=== PATIENT | female | born 1935 | race Caucasian/White ===

== ENCOUNTER 2016-10-28 12:07 | Inpatient (IN) | payer OTHER ==
[~2016-10-28] VITALS: Ht 142.2 cm; Wt 61.5 kg
[~2016-10-28 12:07] MED LIST: ALLERGY10 M2 PO; ARICEPT10 MG PO; ASCORBIC ACID500 M3 PO; ASPIR 8181 MG PO; ASPIRIN81 M2 PO; BACTRIM,SEPT1 TABLET PO; BACTROBAN OINTM22 GM TP; BISACODYL10 MG RC; CEFTIN500 MG PO; CLARITIN10 M3 PO; CLOBETASOL PROP15 GM TP; DAILY VITE WIT1 EACH PO; DILANTIN100 MG PO; DOVONEX TP; DULCOLAX10 MG PR; EFFEXOR75 MG PO; GUAIFENESIN AC473 ML PO; LEVOTHROID,S0.075 MG PO; LEVOTHYROXINE75 MCG PO; LIDEX 0.05% SOL60 ML TP; LISINOPRIL5 MG PO; LORAZEPAM1 MG PO; LUMIGAN 0.50 DROP/22 BOTH EYES; MIRALAX17 GM PO; OMEPRAZOLE20 MG PO; OYSTER SHELL 51 EACH PO; OYSTER SHELL C1 EA14 PO; OYSTER SHELL C1 EAC7 PO; PHENERGAN25 MG PR; PLAVIX75 MG PO; PRILOSEC20 MG PO; PRILOSEC40 MG PO; PROCTOCREAM-HC30 GM PR; PROMETHEGAN25 MG PR; PROVENTIL,2.5 MG/3 M IH; Q-TUSSIN DM SY240 ML PO; REMERON15 M1 PO; REMERON15 M2 PO; SENNA8.6 M1 PO; TEMOVATE 0.05%30 GM TP; TIMOPTIC-XE GEL5 ML BOTH EYES; TYLENOL325 M1 PO; VENLAFAXINE H37.5 M3 PO; VENLAFAXINE HCL75 M1 PO; ZESTRIL,PRINIVIL5 MG PO; ZITHROMAX Z-PA250 MG PO; [UNRECOGNIZED DRUG - OTHER] PO
[2016-10-28 13:28] LABS: EOSINOPHIL (%) 1.5 % (0-5); EOSINOPHIL COUNT 0.1 K/uL (0-0.3); IMMATURE GRANULOCYTE (%) 0.4 % (0.0-0.7); IMMATURE GRANULOCYTE COUNT 0.3 K/uL; LYMPHOCYTE COUNT 1.1 K/uL (1.0-2.8); MCH 33.3 PG (29.0-34.0); MEAN PLAT.VOLUME 9.8 uM^3 (9.5-12.4); MONOCYTE (%) 2.6 % (3-12); MONOCYTE COUNT 0.2 K/uL (0-0.8); NEUTROPHIL (%) 81.5 % (45-76); NEUTROPHIL COUNT 6.5 K/uL (1.8-6.4); PLATELET COUNT 227 K/uL (156-360); RBC DIS.WIDTH-CV 13.2 % (11.8-14.6); RBC DIS.WIDTH-SD 45.3 % (39-53); RED BLOOD COUNT 4.08 M/uL (3.80-5.20)
[2016-10-28 13:29] LABS: INFLUENZA A VIRAL ANTIGEN NEGATIVE; INFLUENZA B VIRAL ANTIGEN NEGATIVE
[2016-10-28 13:39] LABS: CHLORIDE 112 mEq/L (99-109); POTASSIUM 4.5 mEq/L (3.7-5.4); SODIUM 145 mEq/L (136-147)
[2016-10-28 13:41] LABS: GLUCOSE 120 mg/dL (70-99)
[2016-10-28 13:43] LABS: ANION GAP 10 MEQ/L (2-14)
[2016-10-28 13:45] LABS: GFR ESTIMATE (CALCULATED) > 59 mL/min/
[2016-10-28 13:46] LABS: UREA NITROGEN (BUN) 21 mg/dL (9-23)
[2016-10-28] MEDS ORDERED: DONEPEZIL HCL10 MG PO (14:51)
[2016-10-28] MEDS ORDERED: REMERON15 M1 PO (14:52)
[2016-10-28] MEDS ORDERED: VITAMIN C500 M1 PO (14:53)
[2016-10-28] MEDS ORDERED: LUMIGAN 0.50 DROP/22 BOTH EYES (14:54)
[2016-10-28] MEDS ORDERED: CLOBETASOL PROP60 G1 TP (14:56)
[2016-10-28] MEDS ORDERED: CALCIPOTRIENE60 GM TP (14:56)
[2016-10-28] MEDS ORDERED: CALMOSEPTINE O120 GM TP (14:57)
[2016-10-28] MEDS ORDERED: PROAIR HFA8.5 GM IH (14:58)
[2016-10-28] MEDS ORDERED: CORMAX50 M1 TP (15:00)
[2016-10-28] MEDS ORDERED: ACETAMINOPHEN325 M1 PO (15:01)
[2016-10-28] MEDS ORDERED: BISAC-EVAC10 MG PR (15:01)
[2016-10-28] MEDS ORDERED: GUAIFENESIN AC473 ML PO (15:02)
[2016-10-28] MEDS ORDERED: PROMETHAZINE HC25 MG PR (15:03)
[2016-10-28] MEDS ORDERED: Q-TUSSIN DM SY240 ML PO (15:03)
[2016-10-28] MEDS ORDERED: TRAMADOL HCL50 MG PO (15:04)
[2016-10-28] MEDS ORDERED: HYDROCORTISONE30 G2 TP (15:07)
[2016-10-28 17:20] VITALS: BP 180/78
[2016-10-28 20:00] VITALS: BP 142/93
[2016-10-29] VITALS (8 sets, daily range): BP systolic 122–164; BP diastolic 58–89
[2016-10-29 07:20] LABS: EOSINOPHIL (%) 1.3 % (0-5); EOSINOPHIL COUNT 0.1 K/uL (0-0.3); HEMATOCRIT 38.4 % (36.0-46.0); IMMATURE GRANULOCYTE (%) 0.4 % (0.0-0.7); LYMPHOCYTE COUNT 3.6 K/uL (1.0-2.8); MCH 32.3 PG (29.0-34.0); MCHC 32.6 G/DL (30.0-36.0); MCV 99.2 FL (83-99); MEAN PLAT.VOLUME 10.2 uM^3 (9.5-12.4); MONOCYTE (%) 13.9 % (3-12); MONOCYTE COUNT 1.2 K/uL (0-0.8); NEUTROPHIL (%) 43.3 % (45-76); NEUTROPHIL COUNT 3.9 K/uL (1.8-6.4); PLATELET COUNT 218 K/uL (156-360); RBC DIS.WIDTH-CV 13.8 % (11.8-14.6); RBC DIS.WIDTH-SD 49.4 % (39-53); RED BLOOD COUNT 3.87 M/uL (3.80-5.20)
[2016-10-29 07:35] LABS: ANION GAP 8 MEQ/L (2-14); CHLORIDE 108 MEQ/L (99-109); GFR ESTIMATE (CALCULATED) > 59 mL/min/; POTASSIUM 4.3 MEQ/L (3.7-5.4); SAMPLE HEMOLYSIS CHECK 0; SAMPLE ICTERIC CHECK 0; SAMPLE LIPEMIA CHECK 0; SODIUM 140 MEQ/L (136-147); UREA NITROGEN (BUN) 28 mg/dL (9-23)
[2016-10-29 07:36] LABS: GLUCOSE 87 mg/dL (70-99)
[2016-10-30 03:40] VITALS: BP 120/59
[2016-10-30 07:52] VITALS: BP 120/58
[2016-10-30 08:01] LABS: EOSINOPHIL (%) 0.7 % (0-5); HEMATOCRIT 37.1 % (36.0-46.0); IMMATURE GRANULOCYTE (%) 0.5 % (0.0-0.7); LYMPHOCYTE COUNT 1.9 K/uL (1.0-2.8); MCHC 33.4 G/DL (30.0-36.0); MCV 98.7 FL (83-99); MEAN PLAT.VOLUME 10.3 uM^3 (9.5-12.4); MONOCYTE (%) 3.3 % (3-12); MONOCYTE COUNT 0.2 K/uL (0-0.8); NEUTROPHIL COUNT 3.3 K/uL (1.8-6.4); PLATELET COUNT 241 K/uL (156-360); RBC DIS.WIDTH-CV 13.4 % (11.8-14.6); RBC DIS.WIDTH-SD 47.9 % (39-53); RED BLOOD COUNT 3.76 M/uL (3.80-5.20)
[2016-10-30 08:02] LABS: ANION GAP 8 MEQ/L (2-14); CHLORIDE 107 MEQ/L (99-109); GFR ESTIMATE (CALCULATED) > 59 mL/min/; GLUCOSE 104 mg/dL (70-99); POTASSIUM 4.6 MEQ/L (3.7-5.4); SAMPLE HEMOLYSIS CHECK 0; SAMPLE ICTERIC CHECK 0; SAMPLE LIPEMIA CHECK 0; SODIUM 141 MEQ/L (136-147); UREA NITROGEN (BUN) 25 mg/dL (9-23)
[2016-10-30 08:20] LABS: WHITE BLOOD COUNT 5.5 K/uL (4.1-10.2)
[2016-10-30 10:58] VITALS: BP 120/58
[2016-10-30 16:15] VITALS: BP 151/86
[2016-10-30 20:17] VITALS: BP 159/88
[2016-10-30 23:13] VITALS: BP 118/56
[2016-10-31] MEDS ORDERED: LISINOPRIL10 MG PO (07:56)
[2016-10-31] MEDS ORDERED: PREDNISONE5 M1 PO (07:56)
[2016-10-31] MEDS ORDERED: CEFTIN500 MG PO (07:56)
[2016-10-31 08:02] VITALS: BP 128/60
[2016-10-31 11:50] VITALS: BP 124/63
[2016-10-31] MEDS ORDERED: POLYETHYLENE GL17 GM PO (13:54)
[2016-10-31 16:47] VITALS: BP 113/66
[2016-11-01 00:01] VITALS: BP 127/60
[2016-11-01 07:39] VITALS: BP 147/66
== END 2016-11-01 09:20 | disposition home or self-care (01) | DRG 193 ==
LOC: EME 12:07 → EDOF 15:14 → 2EAST 15:14
PROVIDERS: Emergency Medicine; Nurse Practitioner Adult Health; Physician Assistant
DX: J18.9 Pneumonia, unspecified organism (principal); G80.0 Spastic quadriplegic cerebral palsy; F03.90 Unspecified dementia, unspecified severity, without behavioral disturbance, psychotic disturbance, mood disturbance, and anxiety; I10 Essential (primary) hypertension; K21.9 Gastro-esophageal reflux disease without esophagitis; E03.9 Hypothyroidism, unspecified; G40.909 Epilepsy, unspecified, not intractable, without status epilepticus; M85.80 Other specified disorders of bone density and structure, unspecified site; F32.9 Major depressive disorder, single episode, unspecified; Z79.01 Long term (current) use of anticoagulants; K44.9 Diaphragmatic hernia without obstruction or gangrene; Z86.73 Personal history of transient ischemic attack (TIA), and cerebral infarction without residual deficits
CPT/HCPCS: 71010; 74230; 80048; 85025; 87040; 87502; 92526 GN; 92610 GN; 92611 GN; 94640; 94640 76; 94760; 94799; 99202; 99281; 99285; J0456; J0692; J0696; J1644; J2930; J7050

== ENCOUNTER 2017-06-25 15:45 | Inpatient (IN) | payer OTHER ==
[~2017-06-25] VITALS: Ht 144.8 cm; Wt 60.1 kg
[~2017-06-25 15:45] MED LIST changes: +ACETAMINOPHEN325 M1 PO; +BISAC-EVAC10 MG PR; +CALMOSEPTINE O120 GM TP; +CLOBETASOL PROP60 G1 TP; +CORMAX50 M1 TP; +DONEPEZIL HCL10 MG PO; +LISINOPRIL10 MG PO; +OMEPRAZOLE40 M1 PO; +POLYETHYLENE GL17 GM PO; +PREDNISONE5 M1 PO; -PRILOSEC40 MG PO; +PROAIR HFA8.5 GM IH; +PROCTOSOL-HC28.35 GM TP; +PROMETHAZINE HC25 MG PR; +TACLONEX OINTME60 GM TP; +TIMOPTIC-0100 DROP/1 BOTH EYES; -TIMOPTIC-XE GEL5 ML BOTH EYES; +TRAMADOL HCL50 MG PO; -VENLAFAXINE HCL75 M1 PO; +VITAMIN C500 M1 PO
[2017-06-25 16:02] LABS: HEMATOCRIT 40.3 % (36.0-46.0); MCH 32.2 PG (29.0-34.0); MCHC 32.8 G/DL (30.0-36.0); MCV 98.3 FL (83-99); MEAN PLAT.VOLUME 9.8 uM^3 (9.5-12.4); PLATELET COUNT 218 K/uL (156-360); RBC DIS.WIDTH-SD 46.4 % (39-53)
[2017-06-25 16:13] LABS: CHLORIDE 109 mEq/L (99-109); POTASSIUM 4.8 mEq/L (3.7-5.4); SODIUM 141 mEq/L (136-147)
[2017-06-25 16:15] LABS: GLUCOSE 94 mg/dL (70-99)
[2017-06-25 16:16] LABS: ANION GAP 7 MEQ/L (2-14)
[2017-06-25 16:19] LABS: GFR ESTIMATE (CALCULATED) > 59 mL/min/; UREA NITROGEN (BUN) 24 mg/dL (9-23)
[2017-06-25 17:18] LABS: TOTAL BILIRUBIN 0.2 mg/dL (0.0-1.0)
[2017-06-25 17:19] LABS: ALKALINE PHOSPHATASE 98 IU/L (3-129)
[2017-06-25] MEDS ORDERED: DAILY VITAMIN1 EAC2 PO (19:42)
[2017-06-25] MEDS ORDERED: LISINOPRIL5 MG PO (19:43)
[2017-06-25] MEDS ORDERED: LIDEX 0.05% OIN15 GM TP (19:50)
[2017-06-25] MEDS ORDERED: ALBUTEROL2.5 MG/3 M IH (19:51)
[2017-06-25] MEDS ORDERED: HYDROCORTISONE30 G2 TP (19:51)
[2017-06-25] MEDS ORDERED: MUPIROCIN22 GM TP (19:52)
[2017-06-25 21:15] VITALS: BP 131/107
[2017-06-26 00:36] VITALS: BP 150/61
[2017-06-26 06:37] LABS: EOSINOPHIL (%) 3.2 % (0-5); EOSINOPHIL COUNT 0.2 K/uL (0-0.3); HEMATOCRIT 36.6 % (36.0-46.0); IMMATURE GRANULOCYTE (%) 0.6 % (0.0-0.7); INSTRUMENT ABS NEUTROPHIL CT 2.7 K/uL; LYMPHOCYTE COUNT 1.9 K/uL (1.0-2.8); MCH 31.8 PG (29.0-34.0); MCHC 32.2 G/DL (30.0-36.0); MCV 98.7 FL (83-99); MEAN PLAT.VOLUME 10.3 uM^3 (9.5-12.4); MONOCYTE (%) 8.2 % (3-12); MONOCYTE COUNT 0.4 K/uL (0-0.8); NEUTROPHIL (%) 50.3 % (45-76); NEUTROPHIL COUNT 2.7 K/uL (1.8-6.4); PLATELET COUNT 211 K/uL (156-360); RBC DIS.WIDTH-CV 12.8 % (11.8-14.6); RBC DIS.WIDTH-SD 46.3 % (39-53); RED BLOOD COUNT 3.71 M/uL (3.80-5.20); WHITE BLOOD COUNT 5.3 K/uL (4.1-10.2)
[2017-06-26 06:57] LABS: ANION GAP 7 MEQ/L (2-14); CHLORIDE 110 MEQ/L (99-109); GFR ESTIMATE (CALCULATED) > 59 mL/min/; GLUCOSE 91 mg/dL (70-99); POTASSIUM 4.1 MEQ/L (3.7-5.4); SAMPLE HEMOLYSIS CHECK 0; SAMPLE ICTERIC CHECK 0; SAMPLE LIPEMIA CHECK 0; SODIUM 143 MEQ/L (136-147); UREA NITROGEN (BUN) 19 mg/dL (9-23)
[2017-06-26 07:16] VITALS: BP 144/85
[2017-06-26 15:55] VITALS: BP 126/61
[2017-06-26 19:38] VITALS: BP 177/81
[2017-06-26 23:59] VITALS: BP 145/82
[2017-06-27] MEDS ORDERED: CEFTIN500 MG PO (07:22)
[2017-06-27 08:37] VITALS: BP 166/72
== END 2017-06-27 10:17 | disposition home or self-care (01) | DRG 177 ==
LOC: EME 15:45 → EDOF 19:28 → 5EAST 19:28 → ENRESERV 19:35 → 5EAST 21:08
PROVIDERS: Internal Medicine
DX: J69.0 Pneumonitis due to inhalation of food and vomit (principal); G80.0 Spastic quadriplegic cerebral palsy; I10 Essential (primary) hypertension; J44.9 Chronic obstructive pulmonary disease, unspecified; M41.9 Scoliosis, unspecified; S50.12XA Contusion of left forearm, initial encounter; S50.11XA Contusion of right forearm, initial encounter; X50.9XXA Other and unspecified overexertion or strenuous movements or postures, initial encounter; Y92.129 Unspecified place in nursing home as the place of occurrence of the external cause; F03.90 Unspecified dementia, unspecified severity, without behavioral disturbance, psychotic disturbance, mood disturbance, and anxiety; K21.9 Gastro-esophageal reflux disease without esophagitis; G40.909 Epilepsy, unspecified, not intractable, without status epilepticus; E03.9 Hypothyroidism, unspecified; L40.9 Psoriasis, unspecified; H35.30 Unspecified macular degeneration; H40.9 Unspecified glaucoma; M85.80 Other specified disorders of bone density and structure, unspecified site; I69.328 Other speech and language deficits following cerebral infarction; Z79.02 Long term (current) use of antithrombotics/antiplatelets; Z79.82 Long term (current) use of aspirin; Z87.891 Personal history of nicotine dependence; Z99.3 Dependence on wheelchair
CPT/HCPCS: 80048; 80053; 85025; 85027; 87040; 87070; 87205; 87449; 92610 GN; 94640; 94640 76; 99202; 99281; 99285; J0696; J1644; J7030; J7050; S0030